=== PATIENT | female | born 2000 | race Caucasian/White ===

== ENCOUNTER 2022-12-19 08:16 | Emergency (ER) | payer BC ==
[~2022-12-19] VITALS: Ht 157.5 cm; Wt 56.7 kg
[2022-12-19] MEDS ORDERED: LEXAPRO5 MG PO (08:30)
[2022-12-19] MEDS ORDERED: AMOX-CLAV 875-1 EACH PO (10:43)
== END 2022-12-19 11:11 | disposition home or self-care (01) ==
LOC: ER 08:16
DX: B34.9 Viral infection, unspecified (principal); Z20.822 Contact with and (suspected) exposure to COVID-19